=== PATIENT | male | born 1945 | race Caucasian/White ===

== ENCOUNTER 2019-01-23 22:24 | Inpatient (IN) | payer MEDICARE ==
[~2019-01-23] VITALS: Ht 177.8 cm; Wt 81.0 kg
[2019-01-23 22:54] LABS: BASOPHILS 0.3 % (0-2); EOSINOPHILS 0.8 % (0-7); HEMATOCRIT 35.1 % (42.0-54.0); HEMOGLOBIN 11.6 g/dL (13.5-17.5); IMMATURE GRANULOCYTES 0.5 % (0-5); LYMPHOCYTES 28.2 % (15-50); MCH 31.7 pg (26.0-34.0); MCV 95.9 fL (80.0-100.0); MEAN PLATELET VOLUME 11.6 fL (7.4-10.4); MONOCYTES 3.9 % (2-11); NEUTROPHILS 66.3 % (40-80); PLATELET COUNT 299 10x3/uL (130-400); RBC 3.66 10x6/uL (4.20-6.10); RDW 13.6 % (11.5-14.5); WBC 18.8 10x3/uL (4.8-10.8)
[2019-01-23 22:56] VITALS: BP 139/78
[2019-01-23 23:04] LABS: INR 1.31 (0.85-1.17); PROTIME 15.8 SECONDS (11.6-15.0)
[2019-01-23 23:11] VITALS: BP 89/50
[2019-01-23 23:14] LABS: APTT 27.6 SECONDS (22.8-39.4)
[2019-01-23 23:17] LABS: ALBUMIN 2.7 g/dL (3.4-5.0); ALKALINE PHOSPHATASE 81 U/L (46-116); ALT (SGPT) 87 U/L (10-68); BILIRUBIN - TOTAL 0.33 mg/dL (0.2-1.3); CALC OSMOLALITY 295 mosm/kg (275-300); CALCIUM 7.5 mg/dL (8.5-10.1); CARBON DIOXIDE 18.7 mmol/L (21.0-32.0); CHLORIDE - SERUM 109 mmol/L (98-107); CKMB 2.8 U/L (0.0-3.6); CREATINE KINASE 112 UL (21-232); CREATININE - SERUM 2.6 mg/dL (0.6-1.3); GLUCOSE 277 mg/dL (74-106); PROTEIN - SERUM 5.8 g/dL (6.4-8.2); SODIUM 139 mmol/L (136-145); THYROID STIMULATING HORMONE 1.94 uIU/mL (0.36-3.74); TROPONIN-I 0.221 ng/mL (0.000-0.060); UREA NITROGEN 35 mg/dL (7-18); eGFR NON AFRICAN AMERICAN 26 mL/min (90-120)
--- NOTE | 2019-01-23 23:25 | NUR ---
LEVOPHED UPPED TO 3MCG/MIN AT THIS TIME. BP 86/51
[2019-01-23 23:30] VITALS: BP 89/54
--- NOTE | 2019-01-23 23:33 | NUR ---
UPPED LEVOPHED TO 4MCG/MIN DUE TO BP 86/51
--- NOTE | 2019-01-23 23:40 | NUR ---
LEOVPHED UP TO 6MCG/MIN AT THIS TIEM. BP 85/49
[2019-01-23 23:42] LABS: MAGNESIUM - SERUM 2.3 mg/dL (1.8-2.4)
--- NOTE | 2019-01-23 23:45 | NUR ---
PT TRANSPORTED TO CT VIA STRETCHER WITH RN, RESPIRATORY PRESENT. PT ON PORTABLE MONITOR.
[2019-01-24] VITALS (48 sets, daily range): BP systolic 72–140; BP diastolic 52–72; Ht 177.8 cm; Wt 81.0 kg
--- NOTE | 2019-01-24 | NUR ---
PATIENT ARRIVED TO ICU ROOM 2312 VIA STRETCHER ACCOMPANINED BY ICU STAFF, ALL MONITORING EQUIPMENT PLACED, PER ICU PROTOCOL, ASSESSMENT COMPLETE
--- NOTE | 2019-01-24 00:59 | NUR ---
WASTED 40ML OF VERSED DRIP THAT ARRIVED WITH PATIENT BUT WAS NOT INFUSING AT TIME PATIENT ARRIVED. WASTED BY JOSE MAHMOOD RN AND MYSELF.
--- NOTE | 2019-01-24 01:00 | NUR ---
PATIENT REPOSITIONED, ON VENT AND LEVOPHED, WILL CONTINUE TO MONITOR
--- NOTE | 2019-01-24 03:00 | NUR ---
PATIET RE-ASSESSMENT COMPLETE, PER ALYSANG FLOWSHEET, PATIENT REPOSITIONED, ORAL CARE PROVIDED
[2019-01-24 04:47] LABS: HEMATOCRIT 32.4 % (42.0-54.0); HEMOGLOBIN 10.9 g/dL (13.5-17.5); MCH 31.7 pg (26.0-34.0); MCHC 33.6 g/dL (31.0-37.0); MCV 94.2 fL (80.0-100.0); MEAN PLATELET VOLUME 12.1 fL (7.4-10.4); PLATELET COUNT 232 10x3/uL (130-400); RBC 3.44 10x6/uL (4.20-6.10); RDW 13.7 % (11.5-14.5); WBC 18.4 10x3/uL (4.8-10.8)
[2019-01-24 04:58] LABS: CREATININE - SERUM 2.3 mg/dL (0.6-1.3)
--- NOTE | 2019-01-24 05:00 | NUR ---
PATIENT REPOSITIONED, AT BEDSIDE, UPDATE GIVEN, QUESTIONS ANSWERED
[2019-01-24 05:18] LABS: ANION GAP 24.3 mmol/L (8-16); CARBON DIOXIDE 12.1 mmol/L (21.0-32.0); POTASSIUM - SERUM 3.4 mmol/L (3.5-5.1)
[2019-01-24 05:19] LABS: CALCIUM 5.7 mg/dL (8.5-10.1)
[2019-01-24 05:34] LABS: LYMPHOCYTES 5 % (15-50); MONOCYTES 6 % (2-11); NEUTROPHILS 86 % (40-80); PLATELET ESTIMATE NORMAL
[2019-01-24 06:47] LABS: ALBUMIN 1.8 g/dL (3.4-5.0)
--- NOTE | 2019-01-24 07:05 | NUR ---
REPORT RECEIVED. PT ON VENT. SETTINGS PER DOC/RT. PT ALSO HAS NGT. PT HAS LEFT CHEST TUBE. PT HAS IV IN LEFT FOREARM, RIGHT UPPER ARM, AND RIGHT HAND. PT IS NON RESPONSIVE. PT HAS LOVE. BED IN LOWEST POSITION. SIDE RAILS UP X2. VSS. WILL CONTINUE TO MONITOR.
--- NOTE | 2019-01-24 09:00 | NUR ---
DR RAMÍREZ IN TO SEE PT. SPOKE WITH PT'S . PLAN FOR EEG.
--- NOTE | 2019-01-24 11:00 | NUR ---
EEG DONE. PT UNRESPONSIVE IN BED CURRENTLY. VSS. LEVOPHED BEING WEANED DOWN. CURRENTLY DOWN TO 15 MCG. WILL CONTINUE TO MONITOR.
--- NOTE | 2019-01-24 12:54 | NUR ---
LEVOPHED DOWN TO 2.5MCG. BLOOD PRESSURE CURRENTLY 117/68. WILL CONTINUE TO MONITOR.
--- NOTE | 2019-01-24 13:45 | NUR ---
DR ORTIZ ROUNDED ON PT. STATED WOULD PUT IN NEW VENT SETTING ORDERS FOR RT.
--- NOTE | 2019-01-24 14:25 | NUR ---
ORAL CARE PERFORMED.
--- NOTE | 2019-01-24 15:00 | NUR ---
VSS. PT REPOSITIONED.
--- NOTE | 2019-01-24 16:32 | NUR ---
DR. ORTIZ AT BEDSIDE, VENT CHANGES MADE
--- NOTE | 2019-01-24 17:30 | NUR ---
BED BATH GIVEN. ORAL CARE DONE. VSS. PT REPOSITIONED.
--- NOTE | 2019-01-24 17:35 | MORECARE ---
CASE MANAGEMENT DISCHARGE SUMMARY PATIENT: YULIANA HARDWICK UNIT: [id number] ADM DATE: 01/23/19 AGE: 73 : 43 SEX: M ROOM/BED: D.2312 AUTHOR: FRANSISCO GONZALEZ PHYSICIAN: REFERRING PHYSICIAN: AGUSTINA JORDAN MD DATE OF SERVICE: 01/24/19 Discharge Plan Patient Name: YULIANA HARDWICK [facility] [facility] 1945 Planned Disposition: Anticipated Discharge Date: Discharge Date: Expected LOS: Initial Reviewer: [email or web address] Initial Review Date: 01/24/2019 Generated: 01/24/19 6:35 pm Comments DCP- Discharge Planning Updated by [email or web address]: Ann Meek on 01/24/19 4:[address] CM attempted to visit with patient regarding discharge planning/ needs. Patient currently on vent no family available. CM will continue to follow and assist as needed with discharge planning / needs Patient Name: YULIANA HARDWICK Page [phone] at 1735 All edits/amendments must be made on the electronic document DICTATION DATE: 01/24/191733 FUNERAL SERVICE APPRENTICE: AIDEN 01/24/191733 RPT#: [id number] DC DATE: STATUS: ADM IN [facility] [address] [place] [address] END OF REPORT
--- NOTE | 2019-01-24 20:30 | NUR ---
DR RAMÍREZ AT BEDSIDE. VERBAL ORDER RECIEVED FOR DILANTIN 1 GM IV NOW.
[2019-01-24 22:40] LABS: APPEARANCE HAZY (CLEAR); COLOR YELLOW (YELLOW); NITRITE NEGATIVE (NEGATIVE); PROTEIN TRACE mg/dL (NEGATIVE)
[2019-01-24 22:41] LABS: BILIRUBIN NEGATIVE (NEGATIVE); GLUCOSE 1000 mg/dL (NEGATIVE); KETONE NEGATIVE (NEGATIVE); RED CELLS - URINE 0-5 /hpf (0-5); UROBILINOGEN NORMAL (NORMAL); WHITE CELLS - URINE 0-5 /hpf (0-5)
[2019-01-24 22:42] LABS: BACTERIA MODERATE /hpf (NONE SEEN); SPERMATOZOA 0-5 /hpf (NONE SEEN)
[2019-01-24 23:00] LABS: UDS - AMPHET NEGATIVE QUAL (NEGATIVE); UDS - BARB NEGATIVE QUAL (NEGATIVE); UDS - BENZO POSITIVE QUAL (NEGATIVE); UDS - COCAINE NEGATIVE QUAL (NEGATIVE); UDS - OPIATE NEGATIVE QUAL (NEGATIVE); UDS - PCP NEGATIVE QUAL (NEGATIVE); UDS - THC NEGATIVE QUAL (NEGATIVE)
[2019-01-25] VITALS (25 sets, daily range): BP systolic 116–154; BP diastolic 57–85
[2019-01-25 05:31] LABS: HEMATOCRIT 32.5 % (42.0-54.0); HEMOGLOBIN 11.7 g/dL (13.5-17.5); LYMPHOCYTES 6.1 % (15-50); MCH 32.7 pg (26.0-34.0); MCV 90.8 fL (80.0-100.0); MEAN PLATELET VOLUME 11.4 fL (7.4-10.4); NEUTROPHILS 86.9 % (40-80); PLATELET COUNT 194 10x3/uL (130-400); RBC 3.58 10x6/uL (4.20-6.10); RDW 14.3 % (11.5-14.5); WBC 20.4 10x3/uL (4.8-10.8)
[2019-01-25 05:34] LABS: ANION GAP 18.7 mmol/L (8-16); CALCIUM 7.8 mg/dL (8.5-10.1); CREATININE - SERUM 4.8 mg/dL (0.6-1.3); POTASSIUM - SERUM 4.7 mmol/L (3.5-5.1)
--- NOTE | 2019-01-25 07:20 | NUR ---
REPORT RECIEVED, SHIFT ASSESSMENT COMPLETE, PT IS UNRESPONSIVE ON VENT, ALL PPP, VSS, WILL CON'T TO MONITOR
--- NOTE | 2019-01-25 08:44 | NUR ---
DR. ORTIZ AT BEDSIDE, NEW ORDERS RECIEVED,
--- NOTE | 2019-01-25 09:38 | NUR ---
DR. RAMÍREZ AT BEDSIDE, UPDATE GIVEN
--- NOTE | 2019-01-25 11:30 | NUR ---
COMPLETE BATH AND LINEN CHANGE, UPPER LEFT CHEST TUBE DC'D WITH TIP INTACT, PT TOLERATED WELL
--- NOTE | 2019-01-25 11:30 | NUR ---
COMPLETE BATH AND LINEN CHANGE, RIGHT CHEST TUBE DC'D AT THIS TIME, TIP INTACT, PT TOLERATED WELL
--- NOTE | 2019-01-25 14:20 | NUR ---
DIALYSIS AT BEDSIDE. FAMILY MELO CALLED AND GIVEN UPDATE. STATED OKAY
--- NOTE | 2019-01-25 14:41 | NUR ---
DR. JORDAN AT BEDSIDE, SPOKE AT LENGTH WITH FAMILY ABOUT POC,
--- NOTE | 2019-01-25 17:49 | MORECARE ---
CASE MANAGEMENT DISCHARGE SUMMARY PATIENT: YULIANA HARDWICK UNIT: [id number] ADM DATE: 01/23/19 AGE: 73 : 43 SEX: M ROOM/BED: D.2312 AUTHOR: FRANSISCO GONZALEZ PHYSICIAN: REFERRING PHYSICIAN: AGUSTINA JORDAN MD DATE OF SERVICE: 01/25/19 Discharge Plan Patient Name: YULIANA HARDWICK [facility] [facility] 1945 Planned Disposition: Anticipated Discharge Date: Discharge Date: Expected LOS: Initial Reviewer: [email or web address] Initial Review Date: 01/24/2019 Generated: 01/25/19 6:48 pm Comments DCP- Discharge Planning Updated by [email or web address]: Ann Meek on 01/24/19 4:[address] CM attempted to visit with patient regarding discharge planning/ needs. Patient currently on vent no family available. CM will continue to follow and assist as needed with discharge planning / needs Last DP export: 01/24/19 4:35 p Patient Name: YULIANA HARDWICK Page [phone] at 1749 All edits/amendments must be made on the electronic document DICTATION DATE: 01/25/191747 SUPERVISOR LOOPING: AIDEN 01/25/191747 RPT#: [id number] DC DATE: STATUS: ADM IN [facility] [address] [place] [address] END OF REPORT
--- NOTE | 2019-01-25 17:56 | MORECARE ---
CASE MANAGEMENT DISCHARGE SUMMARY PATIENT: YULIANA HARDWICK UNIT: [id number] ADM DATE: 01/23/19 AGE: 73 : 43 SEX: M ROOM/BED: D.2312 AUTHOR: CARLOSDOC PHYSICIAN: REFERRING PHYSICIAN: AGUSTINA JORDAN MD DATE OF SERVICE: 01/25/19 Discharge Plan Patient Name: YULIANA HARDWICK Facility: [facility]:[place] : 1945 Planned Disposition: Anticipated Discharge Date: Discharge Date: Expected LOS: Initial Reviewer: [email or web address] Initial Review Date: 01/24/2019 Generated: 01/25/19 6:56 pm Comments DCP- Discharge Planning Updated by [email or web address]: Ann Meek on 01/25/19 4:[address] Patient Name: YULIANA HARDWICK Admission Status: ER Accout number: [id number] Admission Date: 01-23-2019 : 1945 Admission Diagnosis: Attending: AGUSTINA JORDAN Current LOS: 2 Anticipated DC Date: Planned Disposition: Primary Insurance: UNINSURED DISCOUNT PLAN Discharge Planning Comments: CM met with patient's Deyanira at bedside. Patient is currently on ventilator. Uncertain at this time what patients discharge disposition will be. Family having to make some difficult decisions in the next few days. CM will continue to follow and assist as needed with discharge planning / needs. Special Service Representative: Ann Meek DCP- Discharge Planning Updated by [email or web address]: Ann Meek on 01/24/19 4:[address] CM attempted to visit with patient regarding discharge planning/ needs. Patient currently on vent no family available. CM will continue to follow and assist as needed with discharge planning / needs DCPIA - Discharge Planning Initial Assessment Updated by [email or web address]: Ann Meek on 01/25/19 5:49 pm * Is the patient Alert and Oriented? No * PCP [facility] * Pharmacy [facility] * Preadmission Environment Home with Family * ADLs Independent * List name and contact numbers for known caregivers / representatives who currently or will assist patient after discharge: DEYANIRA HARDWICK - - [phone] Last DP export: 01/25/19 4:49 p Patient Name: YULIANA HARDWICK Page [phone] at 1756 All edits/amendments must be made on the electronic document DICTATION DATE: 01/25/191754 AIR TESTER: AIDEN 01/25/191754 RPT#: [id number] DC DATE: STATUS: ADM IN [facility] [address] [place] [address] END OF REPORT
--- NOTE | 2019-01-25 19:19 | NUR ---
PT RECEIVED WITH EYES CLOSED. ON VENT A/C RATE 16, TV 500, O2 35%, PEEP 5.O. NO SEDATION AND PT UNRESPONSIVE TO VOICE AND TOUCH. IV TO RIGHT HAND, RIGHT UPPERARM, AND LEFT FOREARM ALL SALINE LOCKED. LOVE PATENT WITH YELLOW URINE NOTED. VITAL SIGNS STABLE. WILL CONTINUE TO OBSERVE.
--- NOTE | 2019-01-25 19:45 | NUR ---
RECEIVED CALL FROM FAMILY STATING THAT DAUGHTER IS BEING DISCHARGED AND THAT THEY ARE COMING TO SEE PT.
--- NOTE | 2019-01-25 20:15 | NUR ---
AT BEDSIDE. REPORTED WHAT FAMILY STATED OVER PHONE DUE TO AT THAT TIME THEY WERE UNABLE TO REACH HER. STATES THAT SHE HAS SPOKEN WITH THEM AND IS AWARE.
--- NOTE | 2019-01-25 21:22 | NUR ---
PT RESTING CALMLY, CONTINUES VENT. PT REPOSITIONING SELF. WILL CONTINUE TO OBSERVE.
--- NOTE | 2019-01-25 21:26 | NUR ---
PT CONTINUES TO BE UNRESPONSIVE TO STIMULI. IN WAITING ROOM AT THIS TIME WAITING FOR REST OF FAMILY. WILL CONTINUE TO OBSERVE.
--- NOTE | 2019-01-25 22:53 | NUR ---
[facility]O CALLED AND NOTIFIED OF POSSIBLE TERMINAL EXTUBATION. WAITING ON RETURN CALL.
--- NOTE | 2019-01-25 23:00 | NUR ---
[facility] RETURNED CALL RECEIVED. STATED TO GO AHEAD WITH EXTUBATION AND CALL WITH TIME OF .
--- NOTE | 2019-01-25 23:40 | NUR ---
PT EXTUBATED PER FAMILY. DR JORDAN CALL AND RECIEVED ORDERS FOR PRN MORPHINE. FAMILY AT BEDSIDE.
[2019-01-26] VITALS: BP 132/68; BP 136/74
[2019-01-26 01:00] VITALS: BP 98/62
--- NOTE | 2019-01-26 01:11 | NUR ---
PT OFF VENT WITH O2 2LPM N/C. RESPIRATIONS ELEVATED. HR NORMAL RATE WITH PVC, B/P WNL. STEP DAUGHTER AT BEDSIDE. WILL CONTINUE TO OBSERVE.
[2019-01-26 02:00] VITALS: BP 70/47
--- NOTE | 2019-01-26 02:42 | NUR ---
PT NOTED WITHOUT HEART RATE AT 0230. ER NOTIFIED FOR DOCTOR TO PRONOUNCE. FAMILY IN WAITING ROOM AT THIS TIME. RECORD OF SIGNED FOR RELEASE OF BODY AND NO VALUABLES NOTED.
--- NOTE | 2019-01-26 04:03 | NUR ---
PT BODY RELEASED TO [facility] PER FAMILY REQUEST. RECORD OF COMPLETED.
--- NOTE | 2019-01-26 10:44 | MORECARE ---
CASE MANAGEMENT DISCHARGE SUMMARY PATIENT: YULIANA HARDWICK UNIT: [id number] ADM DATE: 01/23/19 AGE: 73 : 43 SEX: M ROOM/BED: D.2312 AUTHOR: CARLOSDOC PHYSICIAN: REFERRING PHYSICIAN: AGUSTINA JORDAN MD DATE OF SERVICE: 01/26/19 Discharge Plan Patient Name: YULIANA HARDWICK Facility: [facility]:[place] : 1945 Planned Disposition: Anticipated Discharge Date: Discharge Date: 01/26/2019 Expected LOS: Initial Reviewer: [email or web address] Initial Review Date: 01/24/2019 Generated: 01/26/19 11:44 am Comments DCP- Discharge Planning Updated by [email or web address]: Ann Meek on 01/25/19 4:[address] Patient Name: YULIANA HARDWICK Admission Status: ER Accout number: [id number] Admission Date: 01-23-2019 : 1945 Admission Diagnosis: Attending: AGUSTINA JORDAN Current LOS: 2 Anticipated DC Date: Planned Disposition: Primary Insurance: UNINSURED DISCOUNT PLAN Discharge Planning Comments: CM met with patient's Deyanira at bedside. Patient is currently on ventilator. Uncertain at this time what patients discharge disposition will be. Family having to make some difficult decisions in the next few days. CM will continue to follow and assist as needed with discharge planning / needs. Kettle Worker: Ann Meek DCP- Discharge Planning Updated by [email or web address]: Ann Meek on 01/24/19 4:[address] CM attempted to visit with patient regarding discharge planning/ needs. Patient currently on vent no family available. CM will continue to follow and assist as needed with discharge planning / needs DCPIA - Discharge Planning Initial Assessment Updated by [email or web address]: Ann Meek on 01/25/19 5:49 pm * Is the patient Alert and Oriented? No * PCP [facility] * Pharmacy [facility] * Preadmission Environment Home with Family * ADLs Independent * List name and contact numbers for known caregivers / representatives who currently or will assist patient after discharge: DEYANIRA HARDWICK - - [phone] Last DP export: 01/25/19 4:56 p Patient Name: YULIANA HARDWICK Page [phone] at 1044 All edits/amendments must be made on the electronic document DICTATION DATE: 01/26/19 1044 FABRICATOR FOAM RUBBER: AIDEN 01/26/19 1044 RPT#: [id number] DC DATE:01/26/19 STATUS: DIS IN [facility] [address] [place] [address] END OF REPORT
== END 2019-01-26 04:05 | DRG 208 ==
LOC: D.ER 22:24 → D.ICU 23:43
PROVIDERS: Emergency Medicine; ADMIT Internal Medicine Nephrology; ATTEND Internal Medicine Nephrology
PROC: 5A1945Z Respiratory Ventilation, 24-96 Consecutive Hours (ICD-10-PCS; principal; 2019-01-24)
DX: J96.01 Acute respiratory failure with hypoxia (principal); I63.9 Cerebral infarction, unspecified; G81.94 Hemiplegia, unspecified affecting left nondominant side; G93.1 Anoxic brain damage, not elsewhere classified; E87.0 Hyperosmolality and hypernatremia; N17.9 Acute kidney failure, unspecified; T85.698A Other mechanical complication of other specified internal prosthetic devices, implants and grafts, initial encounter; I46.9 Cardiac arrest, cause unspecified; J96.02 Acute respiratory failure with hypercapnia; I10 Essential (primary) hypertension; E11.9 Type 2 diabetes mellitus without complications; E78.5 Hyperlipidemia, unspecified; E11.22 Type 2 diabetes mellitus with diabetic chronic kidney disease; I12.9 Hypertensive chronic kidney disease with stage 1 through stage 4 chronic kidney disease, or unspecified chronic kidney disease; N18.9 Chronic kidney disease, unspecified; I25.10 Atherosclerotic heart disease of native coronary artery without angina pectoris; D72.829 Elevated white blood cell count, unspecified; J98.2 Interstitial emphysema; F17.200 Nicotine dependence, unspecified, uncomplicated